=== PATIENT | male | born 1980 | race African-American/Black ===

== ENCOUNTER 2019-07-30 11:45 | Emergency (ER) | payer SELFPAY ==
[2019-07-30 14:51] LABS: Bilirubin Negative (Negative); Blood, Urine Negative (Negative); Clarity Clear (Clear); Glucose, Urine (Dipstick) Normal (Negative); Leukocyte Negative Leu/uL (Negative); Nitrite Negative (Negative); Protein, Urine (Dipstick) 10 mg/dL (Neg-Trace)
== END 2019-07-30 16:01 | disposition home or self-care (01) ==
LOC: ERS 11:45
DX: F41.9 Anxiety disorder, unspecified (principal); Z79.899 Other long term (current) drug therapy
CPT/HCPCS: 36415; 81003; 84443; 93005